=== PATIENT | female | born 1970 | race Caucasian/White ===

== ENCOUNTER 2018-01-30 19:20 | Emergency (ER) | payer SELFPAY ==
[~2018-01-30] VITALS: Ht 149.9 cm; Wt 42.8 kg
[~2018-01-30 19:20] MED LIST: AMOXICILLIN500 MG PO; FIORICET PO; FLEXERIL PO; MOTRIN800 MG PO; PERCOCET 5/325M1 TAB PO; PREDNISONE10 MG PO; TRAMADOL HYDROC50 MG PO
[2018-01-30 20:36] LABS: URINE BILIRUBIN - DIPSTICK NEGATIVE (NEGATIVE); URINE BLOOD DIPSTICK TRACE-INTACT (NEGATIVE); URINE COLOR YELLOW; URINE GLUCOSE - DIPSTICK 250 mg/dL (NEGATIVE); URINE KETONE NEGATIVE (NEGATIVE); URINE NITRITE - DIPSTICK NEGATIVE (Negative); URINE PROTEIN - DIPSTICK NEGATIVE (NEG-TRACE); URINE UROBILINOGEN - DIPSTICK 0.2 E.U./dL (0.2)
[2018-01-30 20:37] LABS: HEMATOCRIT 39.1 % (37.0-47.0); IMMATURE GRANULOCYTES 0.3 % (0.0-1.0); MEAN CORPUSCULAR HGB 26.9 pG CALC (26.0-32.0); MEAN CORPUSCULAR HGB CONC 33.2 g/L CALC (32.0-36.0); NEUT# 6.33 thou/uL (2.00-7.15); RED BLOOD COUNT 4.83 mill/uL (4.20-5.60); RED CELL DISTRI WIDTH 17.2 % (11.5-15.5)
[2018-01-30 20:41] LABS: URINE LEUK ESTERASE MODERATE (NEGATIVE)
[2018-01-30 20:42] LABS: URINE CLARITY CLOUDY
[2018-01-30 20:57] LABS: ALKALINE PHOSPHATASE 60 u/l (38-126); ANION GAP 13 (6-22 (CALC)); BILIRUBIN, TOTAL 0.4 mg/dL (0.0-1.4); BUN 8 mg/dL (7-17); BUN/CREATININE RATIO 13 (12-20 (CALC)); CARBON DIOXIDE 21 mmol/l (22-30); CHLORIDE 109 mmol/l (95-108); CREATININE 0.6 mg/dL (0.5-1.0); GFR > 60 ML/MIN (>=60 (CALC)); GFR FOR AFR.AMER. > 60 ML/MIN (>=60 (CALC)); SGOT/AST 17 u/l (14-36); SGPT/ALT 24 u/l (9-52); SODIUM 139 mmol/l (137-146); TOTAL PROTEIN 6.8 g/dL (6.3-8.2)
[2018-01-30 21:32] LABS: URINE BACTERIA FEW hpf; URINE SQUAMOUS EPITHELIAL CELL FEW EPI/hpf (0-FEW); URINE WBC 20-50 WBC/hpf (0-5)
[2018-01-30] MEDS ORDERED: BACTRIM DS1 TAB PO (21:37)
[2018-01-30 22:00] VITALS: BP 120/63
== END 2018-01-30 22:00 | disposition home or self-care (01) | DRG 153 ==
LOC: ED 19:20
PROVIDERS: Family Medicine
DX: J01.90 Acute sinusitis, unspecified (principal); F17.210 Nicotine dependence, cigarettes, uncomplicated

== ENCOUNTER 2018-12-02 14:01 | Emergency (ER) | payer SELFPAY ==
[~2018-12-02] VITALS: Ht 149.9 cm; Wt 41.8 kg
[~2018-12-02 14:01] MED LIST changes: +BACTRIM DS1 TAB PO
[2018-12-02] MEDS ORDERED: AUGMENTIN875TAB PO (15:23)
[2018-12-02] MEDS ORDERED: MOTRIN400 MG PO (16:45)
[2018-12-02 17:14] VITALS: BP 125/61
== END 2018-12-02 17:14 | disposition home or self-care (01) | DRG 605 ==
LOC: ED 14:01
DX: S91.352A Open bite, left foot, initial encounter (principal); S90.812A Abrasion, left foot, initial encounter; W54.0XXA Bitten by dog, initial encounter; Y92.009 Unspecified place in unspecified non-institutional (private) residence as the place of occurrence of the external cause; R22.42 Localized swelling, mass and lump, left lower limb